=== PATIENT | female | born 1990 | race Caucasian/White ===

== ENCOUNTER 2019-10-07 19:02 | Emergency (ER) | payer OTHER, SELFPAY ==
[2019-10-07 20:01] LABS: Urine Blood NEGATIVE (NEG); Urine Glucose NEGATIVE (NEG); Urine Protein NEGATIVE (NEG); Urine Specific Gravity 1.015 (1.005-1.030); Urine pH 6.5 (5.0-7.0)
[2019-10-07] MEDS ORDERED: LIDOCAINE 1% W/EPI 1:100,000 MDV 20 ML VIAL ONE (20:05)
--- NOTE | 2019-10-07 20:30 | ER ---
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 Coronavirus screen: Proceed with normal triage. Ebola Screen: No symptoms or risks identified at this time. Initial Sepsis Screen: Does the patient meet any 2 criteria? No. Patient's initial sepsis screen is negative. Does the patient have a suspected source of infection? No. Patient's initial sepsis screen is negative. Risk Assessment: Do you want to hurt yourself or someone else? Patient reports no desire to harm self or others. Onset of symptoms was October 07, 2019. 19:19 Method Of Arrival: Wheelchair lp1 19:19 Acuity: CJ 4 lp1 Triage Assessment: 19:20 General: Appears uncomfortable, Behavior is anxious, crying. Pain: Complains of pain in lp1 dorsum of right foot. 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 - Social history:: Smoking status: Patient denies any tobacco usage or history of. - Family history:: not pertinent. Screenin:21 Abuse screen: Denies threats or abuse. Denies injuries from another. Nutritional lp1 screening: No deficits noted. Tuberculosis screening: No symptoms or risk factors identified. Fall Risk None identified. Assessment: 19:30 General: Appears in no apparent distress. uncomfortable, Behavior is calm, cooperative, rr5 appropriate for age. Pain: Complains of pain in right foot Pain does not radiate. Pain currently is 10 out of 10 on a pain scale. Quality of pain is described as aching, Pain began suddenly, Is continuous. Neuro: Level of Consciousness is awake, alert, obeys commands, Oriented to person, place, time, situation, Appropriate for age. Cardiovascular: Capillary refill < 3 seconds Patient's skin is warm and dry. 19:30 Respiratory: Airway is compromised Respiratory effort is even, unlabored, Respiratory rr5 pattern is regular, symmetrical. GI: No signs and/or symptoms were reported involving the gastrointestinal system. : No signs and/or symptoms were reported regarding the genitourinary system. EENT: No signs and/or symptoms were reported regarding the EENT system. Derm: Skin temperature is warm Wound noted right foot Wound is punctured wound by a fish hook. Musculoskeletal: Capillary refill < 3 seconds. 21:00 Reassessment: Patient appears in no apparent distress at this time. Patient is alert, rr5 oriented x 3, equal unlabored respirations, skin warm/dry/pink. discharge instruction given and explained without complaints made. Patient states feeling better. Patient states symptoms have improved. Vital Signs: 19:19 BP 141 / 103; Pulse 86; Resp 18; Temp 98.8(O); Pulse Ox 100% on R/A; Weight 78.47 kg lp1 (R); Height 5 ft. 5 in. (165.10 cm); Pain 7/10; 19:19 Body Mass Index 28.79 (78.47 kg, 165.10 cm) lp1 ED Course: 19:07 Patient arrived in ED. mr 19:12 Tavo Arredondo MD is Attending Physician. [facility] 19:20 Triage completed. lp1 19:20 Arm band placed on. lp1 19:30 Patient has correct armband on for positive identification. Bed in low position. Call rr5 light in reach. 19:32 Arian Donohue, DANIKA is Primary Nurse. rr5 20:29 Edgar Montgomery DPM is Referral Physician. [facility] 20:30 Assist provider with laceration repair on right foot that was 2.5 cm. or less using rr5 sutures. Set up tray. Performed by Tavo Arredondo MD Dressed with 4X4s, Kerlix, Neosporin, Patient tolerated well. 20:48 Foot Right 2 View In Process Unspecified. EDMS 21:00 Patient did not have IV access during this emergency room visit. 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 Exp: rr5 07/01/2021. Lot #: [id number]. } Route: IM; Site: left deltoid; 21:00 Follow up: Response: No adverse reaction rr5 Outcome: 20:30 Discharge ordered by . yaneth 21:00 Discharged to home via wheelchair, with family. rr5 21:00 Condition: stable 21:00 Discharge instructions given to patient, Instructed on discharge instructions, follow up and referral plans. medication usage, Demonstrated understanding of instructions, follow-up care, medications, Prescriptions given X 2. 21:01 Patient left the ED. rr5 Signatures: Dispatcher [employer] Tavo Newton MD MD cha Rivera, Mary mr Loreta Gtz, RN RN lp1 Arian Donohue RN RN rr5
--- NOTE | 2019-10-07 20:31 | EDPHYS ---
Physician Documentation [facility] Name: Prerna Sheffield Age: 29 yrs Sex: Female : 1990 Arrival Date: 10/07/2019 Time: 19:07 Bed 2 Private MD: IQRA Physician Tavo Arredondo HPI: 10/06 20:23 This 29 yrs old Female presents to ER via Wheelchair with complaints of Fish yaneth hook in foot. 20:23 The patient presents with pain, swelling, tenderness, hook in foot. The complaints yaneth affect the left foot. Context: [place] resulted from a penetrating injury. Onset: The symptoms/episode began/occurred just prior to arrival. Modifying factors: The symptoms are alleviated by nothing, the symptoms are aggravated by nothing. Associated signs and symptoms: The patient has no apparent associated signs or symptoms. Severity of symptoms: At their worst the symptoms were mild, in the emergency department the symptoms are unchanged. The patient has not experienced similar symptoms in the past. 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 - Social history:: Smoking status: Patient denies any tobacco usage or history of. - Family history:: not pertinent. ROS: 20:23 Constitutional: Negative for fever, chills, and weight loss, Eyes: Negative for injury, yaneth pain, redness, and discharge, ENT: Negative for injury, pain, and discharge, Neck: Negative for injury, pain, and swelling, Cardiovascular: Negative for chest pain, palpitations, and edema, Respiratory: Negative for shortness of breath, cough, wheezing, and pleuritic chest pain, Abdomen/GI: Negative for abdominal pain, nausea, vomiting, diarrhea, and constipation, Back: Negative for injury and pain, : Negative for injury, bleeding, discharge, and swelling, Neuro: Negative for headache, weakness, numbness, tingling, and seizure, Psych: Negative for depression, anxiety, suicide ideation, homicidal ideation, and hallucinations, Allergy/Immunology: Negative for hives, rash, and allergies, Endocrine: Negative for neck swelling, polydipsia, polyuria, polyphagia, and marked weight changes, Hematologic/Lymphatic: Negative for swollen nodes, abnormal bleeding, and unusual bruising. 20:23 MS/extremity: Positive for decreased range of motion, pain, swelling, tenderness, of the dorsum of left foot. Exam: 20:23 Constitutional: This is a well developed, well nourished patient who is awake, alert, yaneth and in no acute distress. Head/Face: Normocephalic, atraumatic. Eyes: Pupils equal round and reactive to light, extra-ocular motions intact. Lids and lashes normal. Conjunctiva and sclera are non-icteric and not injected. Cornea within normal limits. Periorbital areas with no swelling, redness, or edema. ENT: Nares patent. No nasal discharge, no septal abnormalities noted. Tympanic membranes are normal and external auditory canals are clear. Oropharynx with no redness, swelling, or masses, exudates, or evidence of obstruction, uvula midline. Mucous membranes moist. Neck: Trachea midline, no thyromegaly or masses palpated, and no cervical lymphadenopathy. Supple, full range of motion without nuchal rigidity, or vertebral point tenderness. No Meningismus. Chest/axilla: Normal chest wall appearance and motion. Nontender with no deformity. No lesions are appreciated. Cardiovascular: Regular rate and rhythm with a normal S1 and S2. No gallops, murmurs, or rubs. Normal PMI, no JVD. No pulse deficits. Respiratory: Lungs have equal breath sounds bilaterally, clear to auscultation and percussion. No rales, rhonchi or wheezes noted. No increased work of breathing, no retractions or nasal flaring. Abdomen/GI: Soft, non-tender, with normal bowel sounds. No distension or tympany. No guarding or rebound. No evidence of tenderness throughout. Back: No spinal tenderness. No costovertebral tenderness. Full range of motion. Skin: Warm, dry with normal turgor. Normal color with no rashes, no lesions, and no evidence of cellulitis. Neuro: Awake and alert, GCS 15, oriented to person, place, time, and situation. Cranial nerves II-XII grossly intact. Motor strength 5/5 in all extremities. Sensory grossly intact. Cerebellar exam normal. Normal gait. Psych: Awake, alert, with orientation to person, place and time. Behavior, mood, and affect are within normal limits. 20:23 Musculoskeletal/extremity: ROM: no acute changes, intact in all extremities, Circulation is intact in all extremities. Pulses: are normal with no appreciated deficits, the dorsum of left foot Compartment Syndrome exam of affected extremity: is normal. DVT Exam: No signs of deep vein thrombosis. no pain, negative Homans' sign noted on exam, no appreciated bluish discoloration, no erythema, no increased warmth, pain, swelling, tenderness. Vital Signs: 19:19 BP 141 / 103; Pulse 86; Resp 18; Temp 98.8(O); Pulse Ox 100% on R/A; Weight 78.47 kg lp1 (R); Height 5 ft. 5 in. (165.10 cm); Pain 7/10; 19:19 Body Mass Index 28.79 (78.47 kg, 165.10 cm) lp1 Procedures: 20:25 Foreign Body Removal: a fishhook, from the left by incising to remove, using lidocaine yaneth 1% with epinephrine to anesthesize the area, needle, Dressinx4s were used to dress the wound, The patient tolerated the removal well. Laceration: 20:33 Wound Repair of 1cm ( 0.4in ) subcutaneous laceration to dorsum of left foot. Linear yaneth shaped.. Distal neuro/vascular/tendon intact. Anesthesia: Local anesthetic administered with 5 mls of 1% lidocaine w/ Epi. Wound prep: Moderate cleansing by me, Copious irrigation. Skin closed with 2 5-0 Prolene using interrupted sutures and sterile technique. Dressed with Neosporin. Patient tolerated well. MDM: 19:12 Patient medically screened. yaneth 20:25 Data reviewed: vital signs, nurses notes, lab test result(s), urinalysis, radiologic yaneth studies, plain films. 20:31 Differential diagnosis: foreign body. Data interpreted: home health nurse: not applicable yaneth for this patient encounter. Pulse oximetry: on room air is 100 %. Test interpretation: by ED physician or midlevel provider: plain radiologic studies. 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 ED course: hook removed without difficulty, piushed through, cut, sutured 2 x 5.0 prolene, loose. 10/06 19:56 Order name: Urine Dipstick--Ancillary (enter results); Complete Time: 20:22 ar5 10/06 19:56 Order name: Urine --Ancillary (enter results); Complete Time: 20:22 ar5 10/06 20:40 Order name: Foot Right 2 View EDMS 10/06 20:17 Order name: Dressing - Wound; Complete Time: 20:18 rr5 10/06 20:17 Order name: Gloves, Sterile; Complete Time: 20:18 rr5 10/06 20:17 Order name: Setup Suture Tray; Complete Time: 20:18 rr5 10/06 21:01 Order name: Prolene, Sutures; Complete Time: 21:01 rr5 Administered Medications: 20:00 Drug: Lidocaine-Epinephrine -1%: (1:100,000) 10 ml {Note: given by .} rr5 Volume: 20 ml; Route: Infiltration; 21:00 Follow up: Response: No adverse reaction; Marked relief of symptoms rr5 20:40 Drug: LevOfloxacin 750 mg Route: PO; rr5 21:00 Follow up: Response: No adverse reaction rr5 20:41 Drug: Tetanus-Diphtheria Toxoid Adult 0.5 ml {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 Exp: rr5 07/01/2021. Lot #: [id number]. } Route: IM; Site: left deltoid; 21:00 Follow up: Response: No adverse reaction rr5 Disposition: 10/07/19 20:30 Discharged to Home. Impression: Puncture wound with foreign body, left foot - fishhook, removed. - Condition is Stable. - Discharge Instructions: Puncture Wound, Puncture Wound, [id number], Foreign Body. - Prescriptions for Levaquin 750 mg Oral Tablet - take 1 tablet by ORAL route once daily for 6 days; 6 tablet. Tylenol- Codeine #3 300-30 mg Oral Tablet - take 2 tablets by ORAL route every 6 hours As needed; 20 tablet. - Medication Reconciliation Form, Thank You Letter, Antibiotic Education, Prescription Opioid Use form. - Follow up: Private Physician; When: 2 - 3 days; Reason: Recheck today's complaints, Continuance of care, Re-evaluation by your physician. Follow up: Edgar Montgomery DPM; When: 2 - 3 days; Reason: Recheck today's complaints, Continuance of care, Re-evaluation by your physician. - Problem is new. - Symptoms have improved. Signatures: Dispatcher [employer] EDMS Tavo Arredondo MD MD cha Pena, Laura RN RN lp1 Arian Donohue RN RN rr5 Corrections: (The following items were deleted from the chart) 20:40 20:21 Foot Left 2 View+RAD.RAD.BRZ ordered. EDRI EDMS 21:01 20:30 10/07/2019 20:30 Discharged to Home. Impression: Puncture wound with foreign rr5 body, left foot - fishhook, removed. Condition is Stable. Forms are Medication Reconciliation Form, Thank You Letter, Antibiotic Education, Prescription Opioid Use. Follow up: Private Physician; When: 2 - 3 days; Reason: Recheck today's complaints, Continuance of care, Re-evaluation by your physician. Follow up: Dr. Edgar Montgomery; When: 2 - 3 days; Reason: Recheck today's complaints, Continuance of care, Re-evaluation by your physician. Problem is new. Symptoms have improved. yaneth
[2019-10-07] MEDS ORDERED: TETANUS & DIPHTHERIA TOX,ADULT 0.5 ML VIAL ONE (20:45)
[2019-10-07] MEDS ORDERED: levoFLOXacin 750 MG TAB ONE (20:45)
--- NOTE | 2019-10-07 20:54 | RAD REPORT ---
EXAM DESCRIPTION: RAD - Foot Right 2 View - 10/07/2019 8:47 pm CLINICAL HISTORY: Pain;Swelling, fish hook injury COMPARISON: No comparisons FINDINGS: No fracture, dislocation or periosteal reaction. No acute or destructive bone process. History indicates fish flow to the top of the right foot. No evidence for a retained metallic foreign body. IMPRESSION: Negative right foot examination.
[2019-10-07 21:15] VITALS: BP 141/103; TEMP 98.8; O2SAT 100
== END 2019-10-07 21:01 | disposition home or self-care (01) ==
LOC: ER 19:02
PROC: 0JCR3ZZ Extirpation of Matter from Left Foot Subcutaneous Tissue and Fascia, Percutaneous Approach (ICD-10-PCS; principal; 2019-10-07)
PROC: 0JQR0ZZ Repair Left Foot Subcutaneous Tissue and Fascia, Open Approach (ICD-10-PCS; 2019-10-07)
DX: S91.342A Puncture wound with foreign body, left foot, initial encounter (principal); Z23 Encounter for immunization
CPT/HCPCS: 81003; 81025; 90471; 90714; 99284